=== PATIENT | female | born 1995 | race American Indian/Alaskan Native ===

== ENCOUNTER 2022-10-17 08:15 | Inpatient (IN) | payer OTHER ==
[2022-10-17 08:56] LABS: HEMATOCRIT 36.1 % (35.0-50.0); HEMOGLOBIN 12.1 g/dL (12.0-18.0); MCHC 33.4 g/dl (30-36); MCV 86.6 fl (81-99); RBC 4.17 M/ul (4.3-5.7); RDW 13.5 (10.5-15.0)
[2022-10-17 09:07] LABS: AMPHETAMINES, UR NEGATIVE (NEGATIVE); BARBITURATES, UR NEGATIVE (NEGATIVE); BENZODIAZEPINES, UR NEGATIVE (NEGATIVE); BUPRENORPHINE,UR NEGATIVE (NEGATIVE); COCAINE, UR NEGATIVE (NEGATIVE); MARIJUANA (THC), UR NEGATIVE (NEGATIVE); MDMA, UR NEGATIVE (NEGATIVE); METHADONE, UR NEGATIVE (NEGATIVE); METHAMPHETAMINE, UR NEGATIVE (NEGATIVE); OPIATES, UR NEGATIVE (NEGATIVE); OXYCODONE, UR NEGATIVE (NEGATIVE); PHENCYCLIDINE, UR NEGATIVE (NEGATIVE); TRICYCLIC ANTIDEPRESSANT, UR NEGATIVE (NEGATIVE)
[2022-10-17 09:35] LABS: ABO O; RH POSITIVE
[2022-10-17 09:36] LABS: ANTIBODY SCREEN NEGATIVE
[2022-10-17 11:54] VITALS: BP 93/50
[2022-10-18 01:18] LABS: INFLUENZA B NAA NEGATIVE (NEGATIVE); RESPIRATORY SYNCYTIAL VIR NAA NEGATIVE (NEGATIVE)
[2022-10-18 05:32] LABS: HEMATOCRIT 29.7 % (35.0-50.0); HEMOGLOBIN 9.9 g/dL (12.0-18.0); MCH 29.1 (27-36); MCHC 33.5 g/dl (30-36); MCV 86.9 fl (81-99); RBC 3.42 M/ul (4.3-5.7); RDW 13.7 (10.5-15.0)
--- NOTE | 2022-10-18 08:40 | PR ---
[facility] [address] [place], [place] [address] Signed PP Progress Notes Datetime Report Generated by CPN: 10/18/2022 08:39 SUBJECTIVE: [id number] Pain: Within Normal Limits Nausea/Vomiting: Denies Flatus: Yes Bowel Movement: No Vital Signs: [id number] Vital Signs: Reviewed; Within Normal Limits Abdomen/Uterus: Normal Lochia: Normal Extremities: Normal Progress: Normal IMPRESSION/PLAN/PROCEDURES: [id number] Impression: Normal Progression Plan: Discharge Procedures: None Progress Notes: S: 27 yo s/p precipitous . PPD#1. Doing well. Denies SOLANO, CP, SOB, F/C, N/V, RUQ pain, changes in vision, vaginal discharge. Reports bleeding is slowing. Tolerating regular diet, ambulating, voiding on own, pain controlled. +flatus. O: AFVSS Abd: Soft, NT, fundus firm, below umbilicus. Musc: SANDOVAL. A/P: Patient well. Meeting all hospital milestones. Will discharge home. Signing Physician: Hamilton Mack MD Copies: ~ *Electronically Signed* 10/18/22 0839 HAMILTON MACK MD PATIENT NAME: RASHEED BUCHANAN PROGRESS NOTE DATE OF : [birth year] PHYSICIAN: HAMILTON MACK MD RPT #: [id number] REPORT IS CONFIDENTIAL AND NOT TO BE RELEASED WITHOUT AUTHORIZATION
--- NOTE | 2022-10-18 10:20 | NUR ---
EXERCISED MINISTRY OF [employer] TALKED TO RECENT EXPERIENCES. PRAYED TOGETHER FOR GOOD BEGINNINGS.
[2022-10-20 11:57] LABS: STREPTOCOCCUS (GROUP B) BY PCR Detected (()); STREPTOCOCCUS (GROUP B) SOURCE Vaginal/Rectal (())
== END 2022-10-18 11:30 | disposition home or self-care (01) | DRG 806 ==
LOC: FBCO 08:15 → FBC 08:25
PROVIDERS: ADMIT Obstetrics & Gynecology; ATTEND Obstetrics & Gynecology
PROC: 10E0XZZ Delivery of Products of Conception, External Approach (ICD-10-PCS; principal; 2022-10-17)
PROC: 0UQMXZZ Repair Vulva, External Approach (ICD-10-PCS; 2022-10-17)
PROC: 0HQ9XZZ Repair Perineum Skin, External Approach (ICD-10-PCS; 2022-10-17)
DX: O62.3 Precipitate labor (principal); O99.324 Drug use complicating childbirth; Z37.0 Single live birth; Z20.822 Contact with and (suspected) exposure to COVID-19; O71.82 Other specified trauma to perineum and vulva; O70.0 First degree perineal laceration during delivery; Z3A.37 37 weeks gestation of pregnancy; F12.90 Cannabis use, unspecified, uncomplicated
CPT/HCPCS: 36415; 85027; 86850; 86900; 86901; 87502; 87653; 90707; A9270; J2590; U0002